=== PATIENT | male | born 1980 | race Caucasian/White ===

== ENCOUNTER 2018-12-12 13:17 | Emergency (ER) | payer SELFPAY, OTHER ==
[2018-12-12] MEDS: HYDROCODONE/APAP (5/325) TAB PO (15:04)
== END 2018-12-12 17:00 | disposition home or self-care (01) ==
LOC: FTE 13:17
DX: S80.11XA Contusion of right lower leg, initial encounter (principal); W22.8XXA Striking against or struck by other objects, initial encounter; Y92.89 Other specified places as the place of occurrence of the external cause
CPT/HCPCS: 29515; 73590; 99283-25